=== PATIENT | female | born 1975 | race Caucasian/White ===

== ENCOUNTER → 2016-11-25 | Outpatient (CLI) | payer OTHER ==
[2016-11-25 15:49] LABS: ABSOLUTE EOSINOPHILS # (AUTO) 0.1 10^3/uL (0.0-0.6); ABSOLUTE LYMPHOCYTES (AUTO) 1.3 10^3/uL (0.5-4.7); ABSOLUTE MONOCYTES (AUTO) 0.4 10^3/uL (0.1-1.4); ABSOLUTE NEUT (AUTO) 3.7 10^3/uL (1.7-8.2); BASOPHILS % (AUTO) 0.3 % (0-2); EOSINOPHILS % (AUTO) 1.5 % (0-6); HEMATOCRIT 40.8 % (36.0-47.0); HEMOGLOBIN 13.3 g/dL (12.0-15.5); HGB HCT DIFFERENCE -0.9; LYMPHOCYTES % (AUTO) 23.3 % (13-45); MEAN CORPUSCULAR HEMOGLOBIN 29.2 pg (27.0-33.4); MEAN CORPUSCULAR HGB CONC 32.6 g/dL (32.0-36.0); MEAN CORPUSCULAR VOLUME 89 fl (80-97); MONOCYTES % (AUTO) 8.1 % (3-13); RED BLOOD COUNT 4.57 10^6/uL (3.72-5.28); RED CELL DISTRIBUTION WIDTH 13.2 % (11.5-14.0); SEGMENTED NEUTROPHILS % (AUTO) 66.8 % (42-78); WHITE BLOOD COUNT 5.6 10^3/uL (4.0-10.5)
[2016-11-25 16:40] LABS: ERYTHROCYTE SEDIMENTATION RATE 13 mm/hr (0-20)
== END ==
LOC: OD 14:30
PROVIDERS: ATTEND Specialist
DX: R10.9 Unspecified abdominal pain (principal); K90.0 Celiac disease; K58.9 Irritable bowel syndrome, unspecified
CPT/HCPCS: 36415; 83520; 85025; 85652; 86140; 86256

== ENCOUNTER → 2016-12-26 | Outpatient (CLI) | payer OTHER ==
[2016-12-30 08:10] LABS: DEAMIDATED GLIADIN IGA AB 4 units (0-19); DEAMIDATED GLIADIN IGG AB 5 units (0-19); IMMUNOGLOBULIN A 2 268 mg/dL (87-352); T-TRANSGLUTAMINASE (TTG) IGG 5 U/mL (0-5)
== END ==
LOC: OD 10:43
PROVIDERS: ATTEND Specialist
DX: R10.9 Unspecified abdominal pain (principal); K90.0 Celiac disease; K58.9 Irritable bowel syndrome, unspecified
CPT/HCPCS: 36415; 83520